=== PATIENT | male | born 1950 | race Caucasian/White ===

== ENCOUNTER 2023-06-02 17:57 | Emergency (ER) | payer MEDICARE, BC ==
[~2023-06-02] VITALS: Ht 193 cm; Wt 152.4 kg
[2023-06-02 18:00] VITALS: BP 188/87; PULSE 104; RESP 16; TEMP 98.2; O2SAT 97
[2023-06-02] MEDS: LIDOcaine 1% 30ml preserv. free vial IJ ONE (18:40)
[2023-06-02] MEDS: TETanus/Pertussis (Acell)/Diphther VAC/PF (Tdap-Adult) 0.5ml syringe IMVAC ONE (18:59)
[2023-06-02] MEDS ORDERED: CEPH-585 PO (20:29)
== END 2023-06-02 20:37 | disposition home or self-care (01) ==
LOC: ER 17:58
DX: S61.213A Laceration without foreign body of left middle finger without damage to nail, initial encounter (principal); Z88.0 Allergy status to penicillin; Z87.891 Personal history of nicotine dependence; W31.9XXA Contact with unspecified machinery, initial encounter; Y93.89 Activity, other specified; Y92.89 Other specified places as the place of occurrence of the external cause; Y99.8 Other external cause status
CPT/HCPCS: 12001; 73140; 90471; 90715; 99283; A6222; J7030; A6258; A6449

== ENCOUNTER 2023-06-13 08:38 | Emergency (ER) | payer MEDICARE, BC ==
[~2023-06-13] VITALS: Ht 193 cm; Wt 153.1 kg
[2023-06-13 08:57] VITALS: BP 194/90; PULSE 89; RESP 18; TEMP 98; O2SAT 98
== END 2023-06-13 09:32 | disposition home or self-care (01) ==
LOC: ER 08:39
DX: S61.213D Laceration without foreign body of left middle finger without damage to nail, subsequent encounter (principal); X58.XXXD Exposure to other specified factors, subsequent encounter; Z88.0 Allergy status to penicillin
CPT/HCPCS: 99281